=== PATIENT | male | born 1950 | race Two or more races ===

== ENCOUNTER 2018-10-03 18:26 | Emergency (ER) | payer OTHER ==
[~2018-10-03] VITALS: Ht 165.1 cm; Wt 92.5 kg
[2018-10-03] MEDS ORDERED: TOPROL XL100 M1 (18:52)
== END 2018-10-03 20:15 | disposition home or self-care (01) ==
LOC: ER 18:26
DX: B35.8 Other dermatophytoses (principal)

== ENCOUNTER 2019-01-23 22:30 | Emergency (ER) | payer OTHER ==
[~2019-01-23] VITALS: Ht 165.1 cm; Wt 92.5 kg
[~2019-01-23 22:30] MED LIST: TOPROL XL100 M1
== END 2019-01-23 23:39 | disposition home or self-care (01) ==
LOC: ER 22:30
DX: S90.121A Contusion of right lesser toe(s) without damage to nail, initial encounter (principal); W22.8XXA Striking against or struck by other objects, initial encounter; Y93.89 Activity, other specified; Y92.018 Other place in single-family (private) house as the place of occurrence of the external cause; Y99.8 Other external cause status